=== PATIENT | female | born 1955 | race Caucasian/White ===

== ENCOUNTER 2018-06-30 21:30 | Inpatient (IN) | payer OTHER ==
[~2018-06-30] VITALS: Ht 165.1 cm; Wt 126.1 kg
[2018-06-30 22:26] LABS: PLATELET COUNT 58 x10^3mcL (130-400); RED CELL DISTRIBUTION WIDTH 16.5 % (11.5-14.5)
[2018-06-30 22:42] LABS: CALCIUM 8.2 mg/dL (8.5-10.1); CARBON DIOXIDE 28.1 mmol/L (21-32); CREATININE SERUM 1.2 mg/dL (0.6-1.0); POTASSIUM SERUM 3.3 mmol/L (3.5-5.1)
[2018-06-30 22:47] LABS: BILIRUBIN TOTAL 7.51 mg/dL (0.20-1.00); MAGNESIUM 1.4 mg/dL (1.8-2.4)
[2018-06-30 22:48] LABS: ALBUMIN 2.1 g/dL (3.4-5.0); TOTAL PROTEIN, SERUM 5.8 g/dL (6.4-8.2)
[2018-06-30] MEDS ORDERED: IMURAN50 MG PO (23:36)
[2018-06-30] MEDS ORDERED: LASIX40 MG PO (23:37)
[2018-06-30] MEDS ORDERED: SPIRONOLACTONE100 MG PO (23:38)
[2018-06-30] MEDS ORDERED: ONDANSETRON4 M3 PO (23:38)
[2018-06-30] MEDS ORDERED: NATURE'S BLEND100 M2 PO (23:39)
[2018-07-01 01:33] LABS: microscopic required? NO
[2018-07-01 01:50] LABS: urine erythrocyte NEGATIVE (NEGATIVE)
[2018-07-01 02:06] LABS: FREE T4 1.35 ng/dL (0.76-1.46)
[2018-07-01 02:24] LABS: T3 TOTAL 0.7 ng/mL
[2018-07-01 03:43] VITALS: BP 111/48
[2018-07-01 06:31] LABS: CALCIUM 8.1 mg/dL (8.5-10.1); CARBON DIOXIDE 28.8 mmol/L (21-32); CREATININE SERUM 1.1 mg/dL (0.6-1.0); MAGNESIUM 1.8 mg/dL (1.8-2.4); PHOSPHOROUS 3.5 mg/dL (2.5-4.9); POTASSIUM SERUM 3.8 mmol/L (3.5-5.1)
[2018-07-01 06:42] VITALS: BP 115/60
[2018-07-01 06:59] LABS: RED CELL DISTRIBUTION WIDTH 16.1 % (11.5-14.5)
[2018-07-01 07:01] LABS: PLATELET COUNT 48 x10^3mcL (130-400)
[2018-07-01 09:18] VITALS: BP 96/52
[2018-07-01 13:23] VITALS: BP 113/58
[2018-07-01 14:53] VITALS: BP 113/58
[2018-07-05 11:17] VITALS: Ht 165.1 cm; Wt 126.1 kg
== END 2018-07-01 15:26 | disposition home or self-care (01) | DRG 808 ==
LOC: ED 21:30 → EDBD 21:30 → MU 07-01 00:23 → DU 07-01 00:23 → MU 07-01 01:24 → DU 07-01 12:03
PROVIDERS: Emergency Medicine; Internal Medicine
DX: D61.811 Other drug-induced pancytopenia (principal); E43 Unspecified severe protein-calorie malnutrition; Z68.42 Body mass index [BMI] 45.0-49.9, adult; T45.1X5A Adverse effect of antineoplastic and immunosuppressive drugs, initial encounter; K75.4 Autoimmune hepatitis; K74.69 Other cirrhosis of liver; E87.6 Hypokalemia; E83.42 Hypomagnesemia; E83.51 Hypocalcemia; I35.0 Nonrheumatic aortic (valve) stenosis; R60.9 Edema, unspecified; E66.01 Morbid (severe) obesity due to excess calories; Z91.14 Patient's other noncompliance with medication regimen; Y92.009 Unspecified place in unspecified non-institutional (private) residence as the place of occurrence of the external cause
CPT/HCPCS: 84439; 97116-GP; J2405; J3475; J7030; J7500; Q0092